=== PATIENT | female | born 1990 | race Caucasian/White ===

== ENCOUNTER 2023-03-31 20:47 | Emergency (ER) | payer OTHER, SELFPAY ==
[2023-03-31 21:28] VITALS: BP 122/79; PULSE 76; RESP 16; TEMP 36.9; O2SAT 98
--- NOTE | 2023-03-31 21:34 | XR_ITS ---
The [address] [address] Patient Name: NIELS PORTILLO MRN: [id number] date: 1990 Sex: F Assigned Patient Location: ED.MAIN Current Patient Location: ER Accession/Order Number: [id number] Exam Date: 03/31/2023 22:42 Report Date: 03/31/2023 22:54 At the request of: ANNABEL FLORENTINO Procedure: XR chest 2V EXAM: XR chest 2V TECHNIQUE: PA and lateral view of the chest HISTORY: cough COMPARISON: None. FINDINGS: The heart and mediastinum are unremarkable. The lung ku are clear of any acute infiltrate, effusion or mass. No acute bony abnormality. XR/XR chest 2V IMPRESSION: No acute pulmonary disease. Electronically authenticated by: PATRICA BRAMBILA Date: 03/31/2023 22:54
--- NOTE | 2023-03-31 22:08 | ED_ITS ---
HPI - URI/Sore Throat General Chief Complaint: Upper Respiratory Infection Stated Complaint: Upper Respiratory Infection Time Seen by Provider: 03/31/23 21:33 Source: patient and family Limitations: no limitations History of Present Illness HPI Narrative: This 32-year-old female, nonsmoker, presents for evaluation of 2 days of headache, body aches, shortness of breath, mild dizziness. 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 She is vaccinated. She has been using NyQuil without significant improvement in her symptoms. She denies possibility of . She has a dry nonproductive cough and feels like something is sitting on her chest. She has not had a fever that she knows of but felt hot yesterday and had chills earlier today. Related Data Home Medications Medication Instructions Recorded Confirmed buspirone 30 mg tablet mg 03/31/23 lamotrigine 25 mg tablet mg 03/31/23 lorazepam 0.5 mg tablet mg 03/31/23 lurasidone 80 mg tablet mg 03/31/23 trazodone 50 mg tablet mg 03/31/23 Allergies Allergy/AdvReac Type Severity Reaction Status Date / Time No Known Drug Allergies Allergy Verified 03/31/23 21:30 Review of Systems ROS Status of ROS 10 or more systems reviewed and unremark able except as noted in history and below [facility] Social History Smoking status: Never smoker Exam Narrative Exam Narrative: Nurses note and vital signs reviewed and patient is not hypoxic. She is afebrile with normal pulse General: Nontoxic but mildly uncomfortable appearing female, audible nasal congestion, no respiratory distress Skin: Warm, dry, no pallor noted. There is no rash noted. Head: Normocephalic, atraumatic Eye: Normal conjunctiva, no drainage, EOMI. PERRL Ears, Nose, Mouth, and Throat: oral mucosa is moist. Mild posterior pharyngeal erythema without exudate Cardiovascular: Regular Rate and Rhythm S1S2, pulses are brisk and equal bilaterally Respiratory: Patient is in no distress, no accessory muscle use, lungs are clear to auscultation, no wheezing, rales or rhonchi Back: non-tender, no CVA tenderness bilaterally to percussion. GI: Normal bowel sounds, no tenderness to palpation, no masses appreciated. No rebound, guarding, or rigidity noted. Musculoskeletal: The patient has no evidence of calf tenderness, no pitting edema, symmetrical pulses noted bilaterally Neurological: A&O x4, normal speech Psychiatric: Cooperative Constitutional Vital Signs, click to edit/add: Last Vital Signs Temp 98.4 F 03/31/23 21:28 Pulse 76 03/31/23 21:28 Resp 16 03/31/23 21:28 BP 122/79 03/31/23 21:28 Pulse Ox 98 03/31/23 21:28 Course Vital Signs Vital signs: Vital Signs Temperature 98.4 F 03/31/23 21:28 Pulse Rate 76 03/31/23 21:28 Respiratory Rate 16 03/31/23 21:28 Blood Pressure 122/79 03/31/23 21:28 Pulse Oximetry 98 03/31/23 21:28 Temperature 98.4 F 03/31/23 21:28 Pulse Rate 76 03/31/23 21:28 Respiratory Rate 16 03/31/23 21:28 Blood Pressure 122/79 03/31/23 21:28 Pulse Oximetry 98 03/31/23 21:28 MDM - URI/Sore Throat MDM Narrative Medical decision making narrative: This 32-year-old female, nonsmoker presents for evaluation of sore throat, body aches, dry cough, chills and headache with congestion. 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 Her vital signs are stable. Physical exam is benign. Her lungs are clear, no wheezing rhonchi or rales are appreciated. She has been taking NyQuil and was medicated emergency department with ibuprofen. She is not having any gastrointestinal symptoms. She is negative for influenza, positive for COVID 19, chest x-ray was negative for acute findings. She is agreeable to Paxlovid and will be discharged home after she receives albuterol [employer] teach and treat. Medical Records Medical records narrative: The [address] [address] XRay Report Signed Patient: NIELS PORTILLO MR#: [id number] : 1990 Acct:[id number] Age/Sex: 32 / F ADM Date: 03/31/23 Loc: ER Attending Dr: Ordering Physician: Annabel Florentino Date of Service: 03/31/23 Procedure(s): XR chest 2V Accession Number(s): [id number] cc: Annabel Florentino; Physician,Non-Staff [place]~ The [address] [address] Patient Name: NIELS PORTILLO MRN: [id number] date: 1990 Sex: F Assigned Patient Location: ED.MAIN Current Patient Location: ER Accession/Order Number: [id number] Exam Date: 03/31/2023 22:42 Report Date: 03/31/2023 22:54 At the request of: ANNABEL FLORENTINO Procedure: XR chest 2V EXAM: XR chest 2V TECHNIQUE: PA and lateral view of the chest HISTORY: cough COMPARISON: None. FINDINGS: The heart and mediastinum are unremarkable. The lung ku are clear of any acute infiltrate, effusion or mass. No acute bony abnormality. XR/XR chest 2V IMPRESSION: No acute pulmonary disease. Electronically authenticated by: PATRICA BRAMBILA Date: 03/31/2023 22:5 Lab Data Labs: Lab Results 03/31/23 Range/Units 21:35 Influenza Type A Ag Negative Influenza Type B Ag Negative SARS-CoV-2 Ag (CV2AG) Positive A (NEGATIVE) Discharge Plan Discharge Chief Complaint: Upper Respiratory Infection Clinical Impression: COVID-19 Patient Disposition: Home, Self-Care Time of Disposition Decision: 23:17 Condition: Good Prescriptions / Home Meds: No Action trazodone 50 mg tablet lamotrigine 25 mg tablet lorazepam 0.5 mg tablet buspirone 30 mg tablet lurasidone 80 mg tablet Instructions: Droplet Precautions (ED), COVID-19 (Coronavirus Disease 2019) (ED), Face Coverings (Masks) and COVID-19 (ED), How to Recover from COVID-19 at Home (ED) Stand Alone Forms: Portal Instructions Referrals: Physician,Non-Staff, MD [Primary Care Provider] - 1 week
[2023-03-31] MEDS: IBUPROFEN 600 MG TABLET PO (22:56)
[2023-03-31 23:08] LABS: Influenza Virus A Antigen Negative; Influenza Virus B Antigen Negative; Internal Control Within Normal Limits; SARS-CoV-2 Ag POSITIVE (NEGATIVE)
--- NOTE | 2023-03-31 23:14 | PC.NURSE ---
covid and flu swab obtained
--- NOTE | 2023-03-31 23:15 | PC.NURSE ---
strep swab obtained and sent to lab
[2023-03-31 23:27] LABS: Internal Control Within Normal Limits; Strep A Antigen Screen Negative
[2023-03-31] MEDS: ALBUTEROL SULFATE 200 PUFF/6.7 GM INHALER IH (23:33)
== END 2023-03-31 23:36 | disposition home or self-care (01) ==
PROVIDERS: Physician Assistant; Emergency Provider Emergency Medicine
DX: U07.1 COVID-19 (principal); Z79.899 Other long term (current) drug therapy
CPT/HCPCS: 71046; 87070; 87804; 87811; 87880; 99285